=== PATIENT | female | born 1970 | race Hispanic/Latino ===

== ENCOUNTER 2020-12-07 10:10 | Emergency (ER) | payer BC ==
[~2020-12-07] VITALS: Ht 160 cm; Wt 130.2 kg
[2020-12-07] MEDS ORDERED: HYDROCHLOROTHIA25 MG PO (10:21)
== END 2020-12-07 10:58 | disposition home or self-care (01) ==
LOC: ER 10:20
DX: I10 Essential (primary) hypertension (principal); E11.9 Type 2 diabetes mellitus without complications
CPT/HCPCS: 99281

== ENCOUNTER 2022-12-05 12:09 | Emergency (ER) | payer OTHER ==
[~2022-12-05] VITALS: Ht 160 cm; Wt 130.2 kg
[~2022-12-05 12:09] MED LIST: HYDROCHLOROTHIA25 MG PO
[2022-12-05] MEDS ORDERED: DEXAMETHASONE SOD PHOS 10 MG/1 ML VIAL ONE (14:01)
[2022-12-05] MEDS ORDERED: KETOROLAC TROMETHAMINE 30 MG/ML VIAL ONE (14:01)
[2022-12-05] MEDS ORDERED: SODIUM CHLORIDE 0.9% 1000ML 1,000 ML ONE (14:01)
[2022-12-05] MEDS ORDERED: NAPROXEN250 MG PO (14:37)
== END 2022-12-05 14:49 | disposition home or self-care (01) ==
LOC: ER 12:22
DX: R51.9 Headache, unspecified (principal); I10 Essential (primary) hypertension; E11.9 Type 2 diabetes mellitus without complications
CPT/HCPCS: 70450; 99284; J1100; J1885; J7030